=== PATIENT | female | born 1980 | race Caucasian/White ===

== ENCOUNTER → 2021-07-22 | Outpatient (CLI) | payer BC ==
[~2021-07-22] MED LIST: MEDROL DOSEPAK4 MG PO; PERCOCET 325 MG1 TA7 PO; VENTOLIN0.09 MG/AC; ZOLOFT50 MG
== END | disposition home or self-care (01) ==
LOC: US 02:34
PROVIDERS: ATTEND Nurse Practitioner Primary Care
DX: R10.31 Right lower quadrant pain (principal); R10.2 Pelvic and perineal pain; K46.9 Unspecified abdominal hernia without obstruction or gangrene

== ENCOUNTER → 2022-05-17 | Outpatient (CLI) | payer BC | END | disposition home or self-care (01) | LOC: US 07:30 | PROVIDERS: ATTEND Nurse Practitioner Women's Health | DX: R10.2 Pelvic and perineal pain (principal); R14.0 Abdominal distension (gaseous) ==

== ENCOUNTER → 2024-08-27 | Outpatient (CLI) | payer BC | END | disposition home or self-care (01) | LOC: MAMMO 03:07 | PROVIDERS: ATTEND Nurse Practitioner Women's Health | DX: Z12.31 Encounter for screening mammogram for malignant neoplasm of breast (principal); R92.323 Mammographic fibroglandular density, bilateral breasts ==

== ENCOUNTER → 2024-09-26 | Outpatient (CLI) | payer BC | END | disposition home or self-care (01) | LOC: MAMMO 02:14 | PROVIDERS: ATTEND Nurse Practitioner Women's Health | DX: N64.89 Other specified disorders of breast (principal); R92.323 Mammographic fibroglandular density, bilateral breasts ==